=== PATIENT | female | born 1995 | race African-American/Black ===

== ENCOUNTER 2025-03-12 11:18 | Outpatient (CLI) | payer OTHER, SELFPAY ==
--- NOTE | ~2025-03-12 | US_ITS ---
US axilla 03/12/2025 11:38 Indication: Global bilateral axillary lumps. History of lipoma removal. Procedure: Soft tissue ultrasound of the axilla bilaterally in the areas of palpable concern Comparison: No prior studies for comparison. Findings: Normal heterogeneous soft tissue in the axilla bilaterally without focal solid or cystic mass. Impression: 1: Normal bilateral axillary ultrasound. Reviewed, dictated and finalized at location O. Impression: 1: Normal bilateral axillary ultrasound.
== END 2025-03-12 11:19 | disposition home or self-care (01) ==
LOC: MICIMG 11:20
DX: R22.33 Localized swelling, mass and lump, upper limb, bilateral (principal); Z86.018 Personal history of other benign neoplasm
CPT/HCPCS: 76882